=== PATIENT | male | born 1995 | race African-American/Black ===

== ENCOUNTER 2018-04-07 16:31 | Emergency (ER) | payer MEDICAID ==
[~2018-04-07] VITALS: Ht 188 cm; Wt 73.0 kg
[2018-04-07] MEDS: TETANUS, DIPHTHERIA, PERTUSSIS VAC/PF 0.5ML (>7YR OLD) IM ONE ×2 (18:50→18:56)
[2018-04-07 19:18] VITALS: BP 107/62
== END 2018-04-07 19:19 | disposition home or self-care (01) ==
LOC: ER 17:40
DX: S01.111A Laceration without foreign body of right eyelid and periocular area, initial encounter (principal); W55.82XA Struck by other mammals, initial encounter; Y93.89 Activity, other specified; Y92.89 Other specified places as the place of occurrence of the external cause; Y99.8 Other external cause status
CPT/HCPCS: 12011; 90715; 99283; Z7610